=== PATIENT | female | born 1965 | race Caucasian/White ===

== ENCOUNTER 2017-10-13 04:49 | Observation (INO) | payer OTHER ==
[~2017-10-13] VITALS: Ht 175.3 cm; Wt 103.9 kg
[~2017-10-13 04:49] MED LIST: GLIPIZIDE 10 MG10 MG; GLUCOPHAGE XR750 MG PO; LEVAQUIN 500 M500 MG PO; PREMARIN0.45 MG; SINGULAIR 10 MG10 M1; UNICOMPLEX M TA1 TA1 PO; VALIUM5 MG; ZOLOFT25 MG; ZYRTEC10 MG
[2017-10-13 04:51] VITALS: BP 125/81
[2017-10-13 05:35] LABS: HEMATOCRIT 37.4 % (37.0-47.0); HEMOGLOBIN 12.7 gm/dL (12.0-15.0); MCH 31.7 pg (26.0-34.0); MCHC 33.8 g/dL (28.0-37.0); MCV 93.5 fL (80.0-100.0); MPV 9.5 fl. (7.2-11.1); NUCLEATED RBCS 0 /100WBC; PLATELET COUNT* 200 thou/uL (150-400); WBC 16.3 thou/uL (4.0-11.0)
[2017-10-13 05:48] LABS: ANION GAP 15 mmol/L (7-16); BUN 12 mg/dL (7-18); CALCIUM 8.7 mg/dL (8.5-10.1); CHLORIDE 101 mmol/L (98-107); CO2 20 mmol/L (21-32); CREATININE 0.9 mg/dL (0.6-1.3); GLUCOSE 322 mg/dL (70-99); POTASSIUM 4.4 mmol/L (3.5-5.1); SODIUM 136 mmol/L (136-145)
[2017-10-13 05:59] LABS: ALBUMIN 3.4 g/dL (3.4-5.0); ALKALINE PHOSPHATASE 58 U/L (46-116); SGOT 26 U/L (15-37); SGPT 29 U/L (30-65); TOTAL BILIRUBIN 0.9 mg/dL (<0.1-1.0); TOTAL PROTEIN 6.7 g/dL (6.4-8.2); TROPONIN-I LEVEL <0.06 ng/mL (<0.06)
[2017-10-13] MEDS ORDERED: FLEXERIL PO (06:42)
[2017-10-13] MEDS ORDERED: HYDROCODONE-AP1 EAC6 PO (06:42)
[2017-10-13 06:54] LABS: ABSOLUTE LYMPHOCYTES 2.1 thou/uL (0.8-5.3); ABSOLUTE MONOCYTES 0.8 thou/uL (0.0-1.2); ABSOLUTE NEUTROPHILS 13.4 thou/uL (1.6-8.1)
[2017-10-13 06:55] LABS: PLATELET ESTIMATE ADEQUATE
[2017-10-13 08:20] VITALS: BP 113/62
[2017-10-13 09:13] VITALS: BP 98/69
--- NOTE | 2017-10-13 10:49 | EKG ---
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 : 1965 Requested By: Savannah Navarrete Order Number: [id number] MD: Hussein Aguayo Measurements Intervals [place] Rate: 99 P: 76 [place]: 190 QRS: 20 QRSD: 132 T: 71 QT: 382 QTc: 491 Interpretive Statements Sinus rhythm Left bundle branch block Compared to ECG 10/20/2015 04:12:58 Sinus tachycardia no longer present Electronically Signed On 10-13-2017 10:49:14 CDT by Hussein Aguayo [email or web address] <ELECTRONICALLY SIGNED> By: Hussein Aguayo MD, [facility] 10/13/17 1049 0453 0453 Hussein Aguayo MD, FAC /EPI
[2017-10-13 11:45] VITALS: BP 113/56
--- NOTE | 2017-10-13 11:47 | NUR ---
PT ADMITTED AROUND 0900 PT IS ALERT AND ORIENTED X 4 PT IS UP AD RICKI PT IS NOT A FALL RISK, PT HAS CHEST PAIN PT IS SR ON THE MONITOR AVE [place] WHICH PT STATES HELPS, PT HAS CTA CHEST ORDERED INSERTED 20 R AC IV FOR TEST WHICH PT WILL GO AROUND 1320, PT IS SLEEPING ON AND OFF, PT STATES PAIN IN HER BACK IS SEPARATE FROM CHEST, PT IS NPO PENDING CARDIOLOGY, WILL CONTINUE TO MONITOR
--- NOTE | 2017-10-13 15:09 | EKG ---
[place] [address] ELECTROCARDIOGRAM REPORT Name: CARAESPERANZA Room: [address] ADM [place] .R.#: [id number] Admission: 10/13/17 Attend Phys: Jean Coronel MD Discharge: Date of : 65 Report #: [id number] THIS REPORT FOR: //name// [facility] ED Test Date: 2017-10-13 Test Time: 05:39:59 Pat Name: ESPERANZA MARROQUIN Department: Room: [address] Gender: F Internal Affairs Investigator: JERI Humphrey : 1965 Requested By: Jean Coronel Order Number: [id number] Reading MD: Jase Castillo Measurements Intervals [place] Rate: 90 P: 61 [place]: 194 QRS: 8 QRSD: 126 T: 61 QT: 392 QTc: 480 Interpretive Statements Sinus rhythm Left bundle branch block Compared to ECG 10/13/2017 04:53:10 No significant changes Electronically Signed On 10-13-2017 15:09:12 CDT by Jase Castillo [email or web address] <ELECTRONICALLY SIGNED> By: Jase Castillo MD, [facility] 10/13/17 1509 0539 0539 Jase Castillo MD, [facility] /EPI
--- NOTE | 2017-10-13 15:09 | EKG ---
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[place] : 1965 Requested By: Jean Coronel Order Number: [id number] Reading MD: Jase Castillo Measurements Intervals [place] Rate: 88 P: 73 [place]: 189 QRS: 9 QRSD: 126 T: 61 QT: 400 QTc: 484 Interpretive Statements Sinus rhythm Left bundle branch block Compared to ECG 10/13/2017 04:53:10 No significant changes Electronically Signed On 10-13-2017 15:09:17 CDT by Jase Castillo [email or web address] <ELECTRONICALLY SIGNED> By: Jase Castillo MD, [facility] 10/13/17 1509 0655 0655 Jase Castillo MD, [facility] /EPI
[2017-10-13 20:00] VITALS: BP 138/75
[2017-10-14] VITALS: BP 107/58
[2017-10-14 04:00] VITALS: BP 101/55
--- NOTE | 2017-10-14 04:55 | NUR ---
SLEEPING ALL NIGHT WITHOUT COMPLAINTS. VSS. DENIES COMPLAINTS OF PAIN OR DISCOMFORT. UP AD RICKI. SR ON THE MONITOR. NO SIGN OF DISTRESS. WILL PROCEED WITH CURRENT PLAN OF CARE AT THIS TIME.
[2017-10-14 05:27] LABS: ABSOLUTE EOSINOPHILS 0.1 thou/uL (0.0-0.7); ABSOLUTE LYMPHOCYTES 2.7 thou/uL (0.8-5.3); ABSOLUTE MONOCYTES 1.1 thou/uL (0.0-1.2); ABSOLUTE NEUTROPHILS 8.5 thou/uL (1.6-8.1); BASOPHILS 0.2 %; EOSINOPHILS 1.1 %; HEMATOCRIT 34.5 % (37.0-47.0); HEMOGLOBIN 11.7 gm/dL (12.0-15.0); LYMPHOCYTES 21.5 %; MCH 31.5 pg (26.0-34.0); MCHC 34.1 g/dL (28.0-37.0); MCV 92.5 fL (80.0-100.0); MONOCYTES 9.1 %; MPV 9.8 fl. (7.2-11.1); NUCLEATED RBCS 0 /100WBC; PLATELET COUNT* 172 thou/uL (150-400); POLYS 68.1 %; RBC 3.73 mil/uL (4.20-5.00); RDW-CV 13.2 % (10.5-14.5); WBC 12.5 thou/uL (4.0-11.0)
[2017-10-14 05:47] LABS: CREATININE 0.6 mg/dL (0.6-1.3); POTASSIUM 3.6 mmol/L (3.5-5.1)
[2017-10-14 07:30] VITALS: BP 117/69
--- NOTE | 2017-10-14 10:50 | NUR ---
RECEIVED PT CARE 0700. PT IS ALERT AND ORIENTED X4. VSS. LAUNDRY ATTENDANT TRACING SR WITH BBB. PATIENT UP AD RICKI IN ROOM. GAIT IS STEADY. PLANNING FOR RESTING PART OF STRESS TEST TODAY AT 1300. PATIENT UP TO DATE ON THE PLAN. AM ASSESSMENT CHARTED. MEDS PER MAR. WILL CONTINUE TO MONITOR.
[2017-10-14 10:55] VITALS: BP 117/69
[2017-10-14 11:42] VITALS: BP 136/83
--- NOTE | 2017-10-14 14:05 | NUR ---
Pt independent, no DME. Resides at home with . 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 Having second part of stress today, if negative, Pt will dc to home later today. No needs anticipated.
--- NOTE | 2017-10-14 16:53 | CARDNUC ---
[place] [address] CARDIAC NUCLEAR IMAGING REPORT Name: CARAESPERANZA Room: [address] MMark#: [id number] Admission: 10/13/17 Attend Phys: Jean Coronel, Discharge: Date of : 65 Date of Service: 10/14/17 1653 Report #: [id number] THIS REPORT FOR: //name// APPROVED REPORT Study performed: 10/13/2017 12:09:00 Exam: Nuclear Stress Test Indication: Chest pain Patient Location: In-Patient Room #: 210 Stress Tech: Lisa Gunn Stress Nurse: Kenyatta Diehl RN Ht: 5 ft 9 in Wt: 229 lbs BSA: 2.19 m2 BMI: 33.81 Medical History Medical History: Diabetes Medications: no cardiac meds Allergies: codeine, meloxicam, latex Cardiac Risk Factors: DM Exercise History: Physically active Stress Test Details Stress Test: Pharmacologic stress testing performed using 0.4 mg of regadenoson per 5 mL given IV over 10 seconds. Reason for pharmacologic stress test: LBBB. Reversal agent Aminophyline 50 mg, given intravenously for headache. HR Resting HR: 94 bpm Max Heart Rate (APMHR): 169 bpm Max HR Achieved: 128 bpm Target HR (85% APMHR): 143 bpm % of APMHR: 75 Recovery HR: 96 bpm HR response to stress: Normal HR response to stress BP Resting BP: 115/74 mmHg Max BP: 115/62 mmHg BP response to stress: Normal blood pressure response to stress. ECG Resting ECG: Sinus Rhythm, LBBB [address] [address] CARDIAC NUCLEAR IMAGING REPORT Name: ESPERANZA MARROQUIN [address]: [address]#: [id number] Admission: 10/13/17 Attend Phys: Jean Coronel, Discharge: Date of : 65 Date of Service: 10/14/17 1653 Report #: [id number] Stress ECG: Sinus Rhythm, LBBB Recovery ECG: Sinus Rhythm, LBBB Clinical Reason for Termination: Completed protocol Stress Symptoms: Chest pain, Headache Exercise duration: 0 min sec Exercise capacity: 1.0 METs Nurse Comments Patient complained of chest pain and headache post lexiscan injection, rated chest pain at 9, resolved to 5, then complained of severe headache. 50mg aminophylline IV for c/o at 1600. Patient stated feeling much better at 1608. Stress ECG Conclusion nondiagnostic ecg NM EXAM: Myocardial Perfusion REST/STRESS Imaging Protocol: Stress Tc-99m/Rest Tc-99m 2 days Pharmacologic Stress Pharmacologic stress test was performed by injecting Regadenoson 0.4 mg IV push followed by the intravenous injection of 38.8 mCi of Tc-99m Sestamibi. Time of stress injection: 1555 Date: 10/13/2017 Time of stress imagin Date: 10/13/2017 Administration Route: IV Administration Site: Right Hand Heart Rate at time of stress injection: 128 bpm. Gated Stress SPECT was performed 40 minutes after stress injection. The images were gated to evaluate regional wall motion and calculate left ventricular ejection fraction. Prone imaging was performed. Study Quality Study: Fair Artifact: Moderate Breast artifact Lung Uptake: Normal Study Data At rest, the left ventricular ejection fraction was 70%.. Post stress, the left ventricular ejection was 77%.. SSS: 13 SRS: 7 [place] [address] CARDIAC NUCLEAR IMAGING REPORT Name: ESPERANZA MARROQUIN Room: [address]#: [id number] Admission: 10/13/17 Attend Phys: Jean Coronel, Discharge: Date of : 65 Date of Service: 10/14/17 1653 Report #: [id number] SDS: 6 Perfusion There is a moderate sized,mild intensity anterior defect, which corresponds to a breast shadow on planar data. Otherwise normal perfusion in all other segments Images were reviewed using Care Team Connectis. Wall Motion septal abn, known LBBB Nuclear Conclusion ECG Findings: non-diagnostic Clinical Findings: non-diagnostic Nuclear Findings: negative for ischemia Exercise Capacity: not assessed Left Ventricular Function: normal Risk Study: low The defect is likely artifact, due to breast attenuation. Low risk study. <Conclusion> nondiagnostic ecg <ELECTRONICALLY SIGNED> By: Jase Castillo MD, FACC 10/14/171652 52 52 Jase Castillo MD, FACC /INF
--- NOTE | 2017-10-14 17:37 | NUR ---
RECEIVED DISCHARGE ORDERS PER DR DEL TORO. STRESS TEST UNREMARKABLE PER DR GARCIA. OK TO DC HOME FROM CARDIOLOGY STANDPOINT. IV DISCONTINUED. LOGISTICS OFFICER REMOVED AND RETURNED TO NURSES DESK. PATIENT DRESSED. EDUCATED ON F/U APPT WITH HER PRIMARY AND F/U APPT WITH DR GARCIA. EDUCATION GIVEN ON HOME MEDICATIONS. PATIENT DENIES ANY QUESTIONS OR CONCERNS AT DISCHARGE. LEAVING AMBULATORY PER PATIENT REQUEST ACCOMPANIED BY HER . ALL BELONGINGS PACKED AND LEAVING WITH PATIENT.
--- NOTE | 2017-10-15 10:56 | CON ---
[address] [address] CONSULTATION Name: ESPERANZA MARROQUIN Room: [address] Janessa Walker#: [id number] Admission: 10/13/17 Attend Phys: Jean Coronel MD Discharge: 10/14/17 Date of : 65 Report #: [id number] THIS REPORT FOR: //name// CC: Jean Sims DATE OF SERVICE: 10/13/2017 PRIMARY CARE PHYSICIAN: Dr. Kamlesh Sims. CHIEF COMPLAINT: Chest pain. HISTORY OF PRESENT ILLNESS: The patient is a 51-year-old female with a history of diabetes mellitus, was lifting a bunch of boxes yesterday over her head and developed a sudden onset of chest pressure and achy pain in the left side of her shoulder and her left chest and chest wall and left shoulder. Her symptoms lasted for several hours. Her ECG on presentation demonstrated a left bundle branch block, but this is apparently old. She was admitted for further evaluation. Serial cardiac troponin levels are unremarkable. This morning, her chest pain symptoms have mostly improved with pain medications. She never received any nitroglycerin. She has had 3 negative troponin levels of 0.06. PAST MEDICAL HISTORY: She is treated for type 2 diabetes with oral medications. She does not have high blood pressure. She does not have a history of prior coronary artery disease. She actually was diagnosed with left bundle branch block 2 years ago and apparently stress test was normal at that time. SOCIAL HISTORY: She has a prior tobacco use. FAMILY HISTORY: Heart disease. REVIEW OF SYSTEMS: PAD. There is no history of cardiovascular disease or claudication. PAST SURGICAL HISTORY: Prior , hysterectomy, laparotomy. She has been on the following medications: Flexeril, hydrocodone, metformin. REVIEW OF SYSTEMS: CENTRAL NERVOUS SYSTEM: No seizure or paralysis. GENERAL: No weight loss or fevers. RESPIRATORY: No cough or sputum production. No flu-like symptoms. CARDIOVASCULAR: No palpitations. Positive chest discomfort, no dyspnea on exertion. She works out fairly regularly. No history of edema. ENDOCRINE: Positive diabetes. GASTROINTESTINAL: No nausea or vomiting. GENITOURINARY: [place] [address] CONSULTATION Name: ESPERANZA MARROQUIN [facility] [address] [id number] Admission: 10/13/17 Attend Phys: Jean Coronel MD Discharge: 10/14/17 Date of : 65 Report #: [id number] HEMATOLOGIC: No anemia or bleeding disorders. ALLERGIES: Positive seasonal allergies. Positive medical allergies. PSYCHIATRIC: No depression or anxiety. MUSCULOSKELETAL: No arthritis, connective tissue disease. SKIN: No rashes. EYES: She does use glasses. EARS, NOSE, THROAT AND MOUTH: No decreased hearing, bleeding from nose or dentures. PHYSICAL EXAMINATION: VITAL SIGNS: Blood pressure is 113/56, pulse is 88, temperature is 36.8. GENERAL: She is pleasant, moderately obese, middle age woman. She is alert, oriented, no apparent distress. HEENT: Eyes are intact. No facial asymmetry. NECK: Supple. No jugular venous distention. CARDIOVASCULAR: Regular. I cannot hear a murmur. LUNGS: Clear to auscultation. ABDOMEN: Soft, nontender. EXTREMITIES: No peripheral edema. LABORATORY DATA: Electrocardiogram demonstrates sinus rhythm, complete left bundle branch block. Troponin Is are normal x 3 sets. Hemoglobin is 12.7, white blood count 16.3, platelet counts 200,000. Sodium is 136, potassium 4.4, chloride is 101, CO2 is 20, BUN is 12, creatinine is 0.9, glucose 322. INR is 1.0. Chest x-ray shows no acute process. IMPRESSION: 1. Chest pain. 2. Left bundle branch block. 3. Diabetes. Given the onset of her symptoms with exertion and her left bundle branch block abnormality and diabetes risk factors, I recommended further evaluation with a pharmacologic nuclear stress test. Because of her bundle branch block, she could not be exercised. If this is normal, I would presume this is probably a musculoskeletal injury. <ELECTRONICALLY SIGNED> By: Jase Castillo MD, FACC 10/15/17 1056 1213 1234Jase Castillo MD, FACC /nt
== END 2017-10-14 17:30 | disposition home or self-care (01) ==
LOC: M.ERS 04:49 → M.TBA-ER 07:28 → M.2W 07:28
PROVIDERS: Emergency Medicine; ADMIT Internal Medicine
DX: R07.89 Other chest pain (principal); E11.9 Type 2 diabetes mellitus without complications; I44.7 Left bundle-branch block, unspecified; R94.31 Abnormal electrocardiogram [ECG] [EKG]; Z82.49 Family history of ischemic heart disease and other diseases of the circulatory system

== ENCOUNTER → 2019-05-06 | Outpatient (CLI) | payer OTHER ==
[~2019-05-06] MED LIST changes: +BACTRIM DS TAB1 EAC1 PO; +BACTRIM DS TAB1 EACH PO; +FLEXERIL PO; +HYDROCODONE-AP1 EAC6 PO; +METFORMIN HCL500 MG PO
== END ==
LOC: M.CT 13:23
DX: Z13.6 Encounter for screening for cardiovascular disorders (principal)

== ENCOUNTER 2019-06-07 19:32 | Emergency (ER) | payer OTHER ==
[~2019-06-07] VITALS: Ht 175.3 cm; Wt 88.9 kg
[~2019-06-07 19:32] MED LIST changes: -BACTRIM DS TAB1 EAC1 PO; -BACTRIM DS TAB1 EACH PO; -METFORMIN HCL500 MG PO
[2019-06-07] MEDS ORDERED: METFORMIN HCL500 MG PO (19:45)
[2019-06-07] MEDS ORDERED: BACTRIM DS TAB1 EACH PO ×2 (19:46→20:40)
[2019-06-07] MEDS ORDERED: BACTRIM DS TAB1 EAC1 PO (20:39)
[2019-06-07 20:50] VITALS: BP 159/97
== END 2019-06-07 20:50 | disposition home or self-care (01) ==
LOC: M.ERS 19:32
DX: S20.461A Insect bite (nonvenomous) of right back wall of thorax, initial encounter (principal); L02.212 Cutaneous abscess of back [any part, except buttock and flank]; E11.9 Type 2 diabetes mellitus without complications; Z98.890 Other specified postprocedural states; Z90.710 Acquired absence of both cervix and uterus; Z91.040 Latex allergy status; Z88.6 Allergy status to analgesic agent; Z88.8 Allergy status to other drugs, medicaments and biological substances; W57.XXXA Bitten or stung by nonvenomous insect and other nonvenomous arthropods, initial encounter; Y93.89 Activity, other specified; Y92.89 Other specified places as the place of occurrence of the external cause; Y99.8 Other external cause status

== ENCOUNTER 2021-06-15 20:03 | Emergency (ER) | payer OTHER ==
[~2021-06-15] VITALS: Ht 175.3 cm; Wt 99.6 kg
[~2021-06-15 20:03] MED LIST changes: +BACTRIM DS TAB1 EAC1 PO; +BACTRIM DS TAB1 EACH PO; +METFORMIN HCL500 MG PO
[2021-06-15 20:15] LABS: URINE BILIRUBIN NEGATIVE (Negative); URINE BLOOD TRACE (Negative); URINE CLARITY CLEAR; URINE COLOR YELLOW; URINE GLUCOSE-RANDOM 3+ (Negative); URINE KETONES 1+ (Negative); URINE LEUKOCYTES-REFLEX NEGATIVE (Negative); URINE NITRITE-REFLEX POSITIVE (Negative); URINE PROTEIN NEGATIVE (Negative); URINE UROBILINOGEN 0.2 E.U./dl (0.2-1.0)
[2021-06-15] MEDS ORDERED: AMARYL1 MG PO (20:15)
[2021-06-15 20:17] LABS: SQUAMOUS 4-10 Moderate /LPF (0-3); URINE RBC None Seen /HPF (0-2); URINE WBC-REFLEX 0-5 Rare /HPF (0-5)
[2021-06-15] MEDS ORDERED: ARMOUR THYROID30 M1 PO (20:17)
[2021-06-15 20:18] LABS: CASTS None Seen /LPF (None Seen); CRYSTALS None Seen /LPF (None Seen)
[2021-06-15 20:46] LABS: CALCIUM 9.2 mg/dL (8.5-10.1); POTASSIUM 4.1 mmol/L (3.5-5.1)
[2021-06-15 20:51] LABS: ALBUMIN 4.1 g/dL (3.4-5.0); TOTAL BILIRUBIN 0.5 mg/dL (<0.1-1.0); TOTAL PROTEIN 8.1 g/dL (6.4-8.2)
[2021-06-15 20:56] LABS: HEMATOCRIT 41.1 % (37.0-47.0); MCH 31.4 pg (26.0-34.0); MCHC 34.1 g/dL (28.0-37.0); MPV 8.5 fl. (7.2-11.1); NUCLEATED RBCS 0 /100WBC; PLATELET COUNT* 200 thou/uL (150-400); RBC 4.47 mil/uL (4.20-5.00); WBC 14.1 thou/uL (4.0-11.0)
[2021-06-15 21:35] LABS: ABSOLUTE EOSINOPHILS 0.1 thou/uL (0.0-0.7); ABSOLUTE LYMPHOCYTES 0.6 thou/uL (0.8-5.3); ABSOLUTE MONOCYTES 0.8 thou/uL (0.0-1.2); ABSOLUTE NEUTROPHILS 12.5 thou/uL (1.6-8.1)
[2021-06-15 21:36] LABS: PLATELET ESTIMATE ADEQUATE
[2021-06-15] MEDS ORDERED: NORCO5 PO (22:24)
[2021-06-16] MEDS ORDERED: HYDROCODON-ACE1 EAC7 PO (00:36)
[2021-06-16] MEDS ORDERED: ZOFRAN ODT4 MG PO (00:36)
[2021-06-16 00:43] VITALS: BP 106/53
--- NOTE | 2021-06-16 11:09 | EKG ---
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[facility] : 1965 Requested By: Donny Salguero Order Number: [id number] MD: Rikki Lopez Measurements Intervals [place] Rate: 131 P: 0 [place]: QRS: -14 QRSD: 129 T: 110 QT: 374 QTc: 553 Interpretive Statements Sinus tachycardia Left bundle branch block Baseline wander in lead(s) V3,V4,V5,V6 Compared to ECG 10/13/2017 06:55:58 Sinus rhythm no longer present Electronically Signed On 06-16-2021 11:09:48 ADJUNCT SOCIOLOGY PROFESSOR by Rikki Lopez [email or web address] <ELECTRONICALLY SIGNED> By: Trevor Lopez MD, FAC 06/16/219 25 25 Trevor Lopez MD, FAC /EPI
== END 2021-06-16 00:43 | disposition home or self-care (01) ==
LOC: M.ERS 20:03
PROVIDERS: Physician Assistant
DX: N39.0 Urinary tract infection, site not specified (principal); Z20.822 Contact with and (suspected) exposure to COVID-19; E11.9 Type 2 diabetes mellitus without complications; Z98.890 Other specified postprocedural states; Z90.711 Acquired absence of uterus with remaining cervical stump; Z98.82 Breast implant status; Z79.899 Other long term (current) drug therapy; Z88.5 Allergy status to narcotic agent; Z91.040 Latex allergy status; Z88.8 Allergy status to other drugs, medicaments and biological substances